=== PATIENT | female | born 2000 | race Caucasian/White ===

== ENCOUNTER 2018-05-21 15:10 | Inpatient (IN) | payer OTHER ==
[2018-05-21] MEDS ORDERED: ONDANSETRON 4 MG INJ IV (15:30)
[2018-05-21] MEDS ORDERED: ACETAMINOPHEN 325 MG TAB PO (15:30)
[2018-05-21] MEDS: DEXTROSE 5%-0.45% NACL 1,000 ML IV (15:45)
[2018-05-21] MEDS: PIPER-TAZO 3.375 GM IV (PMX) 100 ML IVPB ×2 (15:47→22:06)
[2018-05-21] MEDS: FAMOTIDINE 20 MG INJ IV (20:33)
[2018-05-22] MEDS: PIPER-TAZO 3.375 GM IV (PMX) 100 ML IVPB ×3 (05:51→21:43)
[2018-05-22] MEDS: DEXTROSE 5%-0.45% NACL 1,000 ML IV (05:53)
[2018-05-22 07:50] LABS: ADD MAN DIFF? NO
[2018-05-22 07:51] LABS: WHITE BLOOD COUNT 7.6 10^3/ul (4.8-10.8)
[2018-05-22 07:51] LABS: BASOPHILS % 0.4 % (0.0-2.0); EOSINOPHILS # 0.2 10^3/ul (0.0-0.5); EOSINOPHILS % 2.6 % (0.0-7.0); HEMATOCRIT 40.4 % (37.0-47.0); LYMPHOCYTES % 26.5 % (18.0-55.0); MEAN CORPUSCULAR HEMOGLOBIN 29.3 pg (29.0-33.0); MEAN CORPUSCULAR HGB CONC 32.2 g/dl (32.0-37.0); MONOCYTE # 0.7 10^3/ul (0.3-0.9); MONOCYTES % 8.5 % (0.0-13.0); NEUTROPHIL # 4.7 10^3/ul (1.6-7.5); NEUTROPHILS % 61.6 % (30.0-74.0); PLATELET COUNT 290 10^3/UL (140-415); RED BLOOD COUNT 4.44 10^6/ul (4.20-5.40); RED CELL DISTRIBUTION WIDTH 12.3 % (11.5-14.5)
[2018-05-22 08:15] LABS: ALANINE AMINOTRANSFERASE 31 IU/L (13-69); ALBUMIN 4.2 g/dl (3.3-4.9); ALBUMIN/GLOBULIN RATIO 1.35; ALKALINE PHOSPHATASE 92 IU/L (42-121); ANION GAP 12 (5-13); ASPARTATE AMINO TRANSFERASE 23 IU/L (15-46); BILIRUBIN,INDIRECT 1.2 mg/dl (0-1.1); BILIRUBIN,TOTAL 1.2 mg/dl (0.2-1.3); BLOOD UREA NITROGEN 6 mg/dl (7-20); CALCIUM 9.2 mg/dl (8.4-10.2); CARBON DIOXIDE 29 mmol/L (21-31); CHLORIDE 102 mmol/L (97-110); CREATININE 0.76 mg/dl (0.44-1.00); Estimated GFR > 60 mL/min (>60); GLUCOSE 103 mg/dl (70-220); SODIUM 143 mmol/L (135-144); TOTAL PROTEIN 7.3 g/dl (6.1-8.1)
[2018-05-22] MEDS: FAMOTIDINE 20 MG INJ IV ×2 (09:01→21:43)
[2018-05-22] MEDS: HYDROCODONE/APAP (5/325) TAB PO (18:28)
[2018-05-22] MEDS: morphine 2 MG INJ IV (21:43)
[2018-05-22] MEDS: NACL 0.9% 3 ML SYG IV (23:56)
[2018-05-23] MEDS: PIPER-TAZO 3.375 GM IV (PMX) 100 ML IVPB ×3 (05:56→22:04)
[2018-05-23 06:12] LABS: ADD MAN DIFF? NO
[2018-05-23 06:24] LABS: WHITE BLOOD COUNT 9.4 10^3/ul (4.8-10.8)
[2018-05-23 06:24] LABS: BASOPHILS % 0.3 % (0.0-2.0); EOSINOPHILS # 0.3 10^3/ul (0.0-0.5); EOSINOPHILS % 3.2 % (0.0-7.0); HEMATOCRIT 39.9 % (37.0-47.0); HEMOGLOBIN 13.1 g/dl (12.0-16.0); LYMPHOCYTES # 2.5 10^3/ul (0.8-2.9); LYMPHOCYTES % 26.8 % (18.0-55.0); MEAN CORPUSCULAR HEMOGLOBIN 29.5 pg (29.0-33.0); MEAN CORPUSCULAR HGB CONC 32.8 g/dl (32.0-37.0); MEAN CORPUSCULAR VOLUME 89.9 fl (72.0-104.0); MONOCYTE # 0.8 10^3/ul (0.3-0.9); NEUTROPHIL # 5.8 10^3/ul (1.6-7.5); NEUTROPHILS % 61.5 % (30.0-74.0); PLATELET COUNT 293 10^3/UL (140-415); RED BLOOD COUNT 4.44 10^6/ul (4.20-5.40); RED CELL DISTRIBUTION WIDTH 12.2 % (11.5-14.5)
[2018-05-23 07:05] LABS: ALANINE AMINOTRANSFERASE 34 IU/L (13-69); ALBUMIN 4.2 g/dl (3.3-4.9); ALBUMIN/GLOBULIN RATIO 1.27; ALKALINE PHOSPHATASE 94 IU/L (42-121); ANION GAP 13 (5-13); ASPARTATE AMINO TRANSFERASE 31 IU/L (15-46); BILIRUBIN,INDIRECT 0.8 mg/dl (0-1.1); BILIRUBIN,TOTAL 0.8 mg/dl (0.2-1.3); BLOOD UREA NITROGEN 9 mg/dl (7-20); CALCIUM 9.6 mg/dl (8.4-10.2); CARBON DIOXIDE 26 mmol/L (21-31); CHLORIDE 103 mmol/L (97-110); CREATININE 0.65 mg/dl (0.44-1.00); Estimated GFR > 60 mL/min (>60); GLUCOSE 86 mg/dl (70-220); POTASSIUM 3.8 mmol/L (3.5-5.1); SODIUM 142 mmol/L (135-144); TOTAL PROTEIN 7.5 g/dl (6.1-8.1)
[2018-05-23] MEDS: FAMOTIDINE 20 MG INJ IV ×2 (09:01→20:46)
[2018-05-23] MEDS: D5W-0.45 NACL + KCL 20 MEQ 1,000 ML IV (23:57)
[2018-05-24] MEDS: morphine 2 MG INJ IV ×2 (01:41→23:02)
[2018-05-24 06:05] LABS: ADD MAN DIFF? NO
[2018-05-24] MEDS: PIPER-TAZO 3.375 GM IV (PMX) 100 ML IVPB ×3 (06:10→19:58)
[2018-05-24 06:14] LABS: BASOPHILS % 0.3 % (0.0-2.0); EOSINOPHILS # 0.2 10^3/ul (0.0-0.5); EOSINOPHILS % 1.9 % (0.0-7.0); HEMATOCRIT 38.1 % (37.0-47.0); HEMOGLOBIN 12.7 g/dl (12.0-16.0); LYMPHOCYTES # 2.4 10^3/ul (0.8-2.9); LYMPHOCYTES % 21.1 % (18.0-55.0); MEAN CORPUSCULAR HEMOGLOBIN 29.5 pg (29.0-33.0); MEAN CORPUSCULAR HGB CONC 33.3 g/dl (32.0-37.0); MEAN CORPUSCULAR VOLUME 88.4 fl (72.0-104.0); MEAN PLATELET VOLUME 10.9 fl (7.4-10.4); MONOCYTE # 0.9 10^3/ul (0.3-0.9); MONOCYTES % 8.2 % (0.0-13.0); NEUTROPHIL # 7.6 10^3/ul (1.6-7.5); NEUTROPHILS % 68.1 % (30.0-74.0); PLATELET COUNT 275 10^3/UL (140-415); RED BLOOD COUNT 4.31 10^6/ul (4.20-5.40)
[2018-05-24 06:14] LABS: WHITE BLOOD COUNT 11.2 10^3/ul (4.8-10.8)
[2018-05-24] MEDS ORDERED: NEOSTIGMINE 10 MG INJ (07:00)
[2018-05-24] MEDS ORDERED: GLYCOPYRROLATE 0.4 MG INJ (07:00)
[2018-05-24 07:35] LABS: MAGNESIUM 1.9 mg/dl (1.7-2.5)
[2018-05-24 07:37] LABS: ALANINE AMINOTRANSFERASE 33 IU/L (13-69); ALBUMIN 3.9 g/dl (3.3-4.9); ALBUMIN/GLOBULIN RATIO 1.25; ALKALINE PHOSPHATASE 93 IU/L (42-121); ANION GAP 10 (5-13); ASPARTATE AMINO TRANSFERASE 22 IU/L (15-46); BILIRUBIN,INDIRECT 0.7 mg/dl (0-1.1); BILIRUBIN,TOTAL 0.7 mg/dl (0.2-1.3); BLOOD UREA NITROGEN 8 mg/dl (7-20); CALCIUM 9.3 mg/dl (8.4-10.2); CARBON DIOXIDE 23 mmol/L (21-31); CHLORIDE 105 mmol/L (97-110); CREATININE 0.63 mg/dl (0.44-1.00); Estimated GFR > 60 mL/min (>60); GLUCOSE 98 mg/dl (70-220); POTASSIUM 3.7 mmol/L (3.5-5.1); SODIUM 138 mmol/L (135-144)
[2018-05-24] MEDS: FAMOTIDINE 20 MG INJ IV ×2 (09:01→22:17)
[2018-05-24] MEDS: D5W-0.45 NACL + KCL 20 MEQ 1,000 ML IV (14:08)
[2018-05-24] MEDS ORDERED: PIPER-TAZO 3.375 GM IV (PMX) 100 ML IVPB (18:00)
[2018-05-24] MEDS ORDERED: PROPOFOL 20 ML (19:38)
[2018-05-24] MEDS ORDERED: ROCURONIUM 50 MG INJ (19:38)
[2018-05-24] MEDS ORDERED: METOCLOPRAMIDE 10 MG INJ (19:39)
[2018-05-24] MEDS ORDERED: KETOROLAC 30 MG INJ (19:39)
[2018-05-24] MEDS ORDERED: ONDANSETRON 4 MG INJ (19:39)
[2018-05-24] MEDS ORDERED: ROPIVACAINE 0.5 % 30 ML VIAL (19:39)
[2018-05-24] MEDS ORDERED: MIDAZOLAM 1 MG/ML 2 ML INJ (19:39)
[2018-05-24] MEDS ORDERED: FENTAnyl 50 MCG/ML VIAL (19:54)
[2018-05-24] MEDS ORDERED: DIPHENHYDRAMINE 50 MG INJ IV (20:00)
[2018-05-24] MEDS ORDERED: HYDROmorphONE 1 MG/5 ML IV SYRINGE IV ×3 (20:00)
[2018-05-24] MEDS ORDERED: FENTAnyl 50 MCG/ML VIAL IV ×2 (20:00)
[2018-05-24] MEDS ORDERED: MEPERIDINE 25 MG INJ IV (20:00)
[2018-05-24 20:04] LABS: ADD UMIC NO; UR ASCORBIC ACID NEGATIVE (NEGATIVE); UR BILIRUBIN (Dip) NEGATIVE (NEGATIVE); UR BLOOD (Dip) NEGATIVE (NEGATIVE); UR CLARITY CLEAR (CLEAR); UR COLOR YELLOW (YELLOW); UR GLUCOSE (Dip) NEGATIVE (NEGATIVE); UR KETONES (Dip) 1+ mg/dL (NEGATIVE); UR LEUKOCYTE ESTERASE (Dip) NEGATIVE Leu/ul (NEGATIVE); UR NITRITE (Dip) NEGATIVE (NEGATIVE); UR SPECIFIC GRAVITY (Dip) 1.019 (1.003-1.030); UR TOTAL PROTEIN (Dip) NEGATIVE (NEGATIVE); UR UROBILINOGEN (Dip) NEGATIVE (NEGATIVE)
[2018-05-24] MEDS: LIDOCAINE 1% (MPF) 30 ML INJ (20:05)
[2018-05-24] MEDS: BUPIVACAINE 0.5%/EPI (SDV) 30 ML INJ (20:05)
[2018-05-24] MEDS: ONDANSETRON 4 MG INJ IV (21:07)
[2018-05-24] MEDS: FENTAnyl 50 MCG/ML VIAL IV (21:08)
[2018-05-25] MEDS: D5W-0.45 NACL + KCL 20 MEQ 1,000 ML IV ×3 (01:10→13:52)
[2018-05-25] MEDS: PIPER-TAZO 3.375 GM IV (PMX) 100 ML IVPB ×4 (01:53→21:04)
[2018-05-25] MEDS: morphine 2 MG INJ IV (04:07)
[2018-05-25 05:56] LABS: ADD MAN DIFF? NO
[2018-05-25 06:02] LABS: BASOPHILS % 0.1 % (0.0-2.0); EOSINOPHILS # 0.1 10^3/ul (0.0-0.5); EOSINOPHILS % 0.6 % (0.0-7.0); HEMATOCRIT 38.7 % (37.0-47.0); HEMOGLOBIN 12.5 g/dl (12.0-16.0); LYMPHOCYTES % 12.5 % (18.0-55.0); MEAN CORPUSCULAR HEMOGLOBIN 28.9 pg (29.0-33.0); MEAN CORPUSCULAR HGB CONC 32.3 g/dl (32.0-37.0); MEAN CORPUSCULAR VOLUME 89.6 fl (72.0-104.0); MONOCYTE # 0.8 10^3/ul (0.3-0.9); NEUTROPHIL # 6.1 10^3/ul (1.6-7.5); NEUTROPHILS % 76.3 % (30.0-74.0); PLATELET COUNT 258 10^3/UL (140-415); RED BLOOD COUNT 4.32 10^6/ul (4.20-5.40)
[2018-05-25 06:18] LABS: MAGNESIUM 1.7 mg/dl (1.7-2.5)
[2018-05-25 06:48] LABS: ALANINE AMINOTRANSFERASE 60 IU/L (13-69); ALBUMIN 3.8 g/dl (3.3-4.9); ALBUMIN/GLOBULIN RATIO 1.18; ALKALINE PHOSPHATASE 101 IU/L (42-121); ANION GAP 8 (5-13); ASPARTATE AMINO TRANSFERASE 53 IU/L (15-46); BILIRUBIN,INDIRECT 1.3 mg/dl (0-1.1); BILIRUBIN,TOTAL 1.3 mg/dl (0.2-1.3); BLOOD UREA NITROGEN 4 mg/dl (7-20); CARBON DIOXIDE 25 mmol/L (21-31); CHLORIDE 106 mmol/L (97-110); CREATININE 0.59 mg/dl (0.44-1.00); Estimated GFR > 60 mL/min (>60); GLUCOSE 107 mg/dl (70-220); POTASSIUM 3.9 mmol/L (3.5-5.1); SODIUM 139 mmol/L (135-144)
[2018-05-25] MEDS: FAMOTIDINE 20 MG INJ IV ×2 (08:46→21:04)
[2018-05-25] MEDS: HYDROCODONE/APAP (5/325) TAB PO (22:20)
[2018-05-26] MEDS: PIPER-TAZO 3.375 GM IV (PMX) 100 ML IVPB ×4 (01:45→20:16)
[2018-05-26] MEDS: FAMOTIDINE 20 MG INJ IV (08:10)
[2018-05-26 08:41] LABS: ADD MAN DIFF? NO
[2018-05-26 08:55] LABS: WHITE BLOOD COUNT 5.9 10^3/ul (4.8-10.8)
[2018-05-26 08:55] LABS: BASOPHILS % 0.3 % (0.0-2.0); EOSINOPHILS # 0.2 10^3/ul (0.0-0.5); EOSINOPHILS % 3.2 % (0.0-7.0); HEMATOCRIT 40.7 % (37.0-47.0); LYMPHOCYTES # 1.8 10^3/ul (0.8-2.9); LYMPHOCYTES % 30.3 % (18.0-55.0); MEAN CORPUSCULAR HEMOGLOBIN 29.3 pg (29.0-33.0); MEAN CORPUSCULAR HGB CONC 31.9 g/dl (32.0-37.0); MEAN CORPUSCULAR VOLUME 91.9 fl (72.0-104.0); MEAN PLATELET VOLUME 11.3 fl (7.4-10.4); MONOCYTE # 0.7 10^3/ul (0.3-0.9); MONOCYTES % 11.4 % (0.0-13.0); NEUTROPHIL # 3.2 10^3/ul (1.6-7.5); NEUTROPHILS % 54.6 % (30.0-74.0); PLATELET COUNT 214 10^3/UL (140-415); RED BLOOD COUNT 4.43 10^6/ul (4.20-5.40); RED CELL DISTRIBUTION WIDTH 12.3 % (11.5-14.5)
[2018-05-26 08:57] LABS: POSITIVE DIFF @See below
[2018-05-26 09:19] LABS: ANION GAP 10 (5-13); BLOOD UREA NITROGEN 6 mg/dl (7-20); CALCIUM 9.4 mg/dl (8.4-10.2); CARBON DIOXIDE 25 mmol/L (21-31); CHLORIDE 106 mmol/L (97-110); CREATININE 0.68 mg/dl (0.44-1.00); Estimated GFR > 60 mL/min (>60); GLUCOSE 120 mg/dl (70-220); MAGNESIUM 1.8 mg/dl (1.7-2.5); PHOSPHORUS 3.4 mg/dl (2.5-4.9); POTASSIUM 3.7 mmol/L (3.5-5.1); SODIUM 141 mmol/L (135-144)
[2018-05-27] MEDS: PIPER-TAZO 3.375 GM IV (PMX) 100 ML IVPB ×2 (02:08→08:00)
[2018-05-27 07:56] LABS: ADD MAN DIFF? NO
[2018-05-27 07:59] LABS: WHITE BLOOD COUNT 7.7 10^3/ul (4.8-10.8)
[2018-05-27 07:59] LABS: BASOPHILS % 0.3 % (0.0-2.0); EOSINOPHILS # 0.3 10^3/ul (0.0-0.5); HEMATOCRIT 38.3 % (37.0-47.0); HEMOGLOBIN 12.3 g/dl (12.0-16.0); LYMPHOCYTES % 26.4 % (18.0-55.0); MEAN CORPUSCULAR HEMOGLOBIN 29.3 pg (29.0-33.0); MEAN CORPUSCULAR HGB CONC 32.1 g/dl (32.0-37.0); MEAN CORPUSCULAR VOLUME 91.2 fl (72.0-104.0); MEAN PLATELET VOLUME 11.2 fl (7.4-10.4); MONOCYTE # 0.8 10^3/ul (0.3-0.9); MONOCYTES % 9.7 % (0.0-13.0); NEUTROPHIL # 4.6 10^3/ul (1.6-7.5); NEUTROPHILS % 59.3 % (30.0-74.0); PLATELET COUNT 261 10^3/UL (140-415); RED CELL DISTRIBUTION WIDTH 12.4 % (11.5-14.5)
[2018-05-27 08:23] LABS: ANION GAP 13 (5-13); BLOOD UREA NITROGEN 9 mg/dl (7-20); CALCIUM 9.5 mg/dl (8.4-10.2); CARBON DIOXIDE 27 mmol/L (21-31); CHLORIDE 102 mmol/L (97-110); CREATININE 0.67 mg/dl (0.44-1.00); Estimated GFR > 60 mL/min (>60); GLUCOSE 78 mg/dl (70-220); MAGNESIUM 1.8 mg/dl (1.7-2.5); PHOSPHORUS 4.2 mg/dl (2.5-4.9); POTASSIUM 3.6 mmol/L (3.5-5.1); SODIUM 142 mmol/L (135-144)
== END 2018-05-27 15:35 | disposition home or self-care (01) | DRG 419 ==
LOC: PP2 15:10
PROC: 0FT44ZZ Resection of Gallbladder, Percutaneous Endoscopic Approach (ICD-10-PCS; principal; 2018-05-24 19:40)
DX: K80.00 Calculus of gallbladder with acute cholecystitis without obstruction (principal); E66.9 Obesity, unspecified; Z68.30 Body mass index [BMI] 30.0-30.9, adult; D72.829 Elevated white blood cell count, unspecified
CPT/HCPCS: 80048; 80053; 81003; 83735; 84100; 84703; 85025; 88304; 90686